=== PATIENT | male | born 1955 | race Caucasian/White ===

== ENCOUNTER → 2017-05-01 | Outpatient (CLI) | payer BC, OTHER ==
--- NOTE | 2017-05-01 12:07 | DIAGNOSTIC IMAGING REPORT ---
L ELBOW 2 VIEWS HISTORY: 61 years-old Male INJURY OF ELBOW LT acute left elbow pain status post fall COMPARISON: None available TECHNIQUE: 3 views of the left elbow FINDINGS: No acute fracture, dislocation, opaque foreign body or large joint effusion. Small enthesophyte is noted about the olecranon at the triceps insertion site. Mild soft tissue swelling is noted posteriorly about the olecranon process. IMPRESSION: Soft tissue swelling without fracture or dislocation. The above report was generated using voice recognition software. It may contain grammatical, syntax or spelling errors. Electronically signed by: Andrey Lafleur M.D. 05/01/2017 12:05 PM Dictated Date/Time: 05/01/2017 12:04 PM
== END ==
LOC: C.RADPV 11:43
PROVIDERS: ATTEND Family Medicine
DX: S59.902A Unspecified injury of left elbow, initial encounter (principal); X58.XXXA Exposure to other specified factors, initial encounter

== ENCOUNTER 2017-08-08 10:48 | Emergency (ER) | payer BC ==
[~2017-08-08] VITALS: Ht 177.8 cm; Wt 96.4 kg
[2017-08-08 11:01] VITALS: Ht 177.8 cm; Wt 96.4 kg
[2017-08-08] MEDS ORDERED: ATOR-24 PO (11:38)
[2017-08-08] MEDS ORDERED: LEVO200T6 PO (11:38)
[2017-08-08] MEDS ORDERED: ACET-1311 PO (11:38)
[2017-08-08] MEDS ORDERED: PRLSR20 PO (11:38)
--- NOTE | 2017-08-08 12:32 | DIAGNOSTIC IMAGING REPORT ---
LEFT LOWER EXTREMITY VENOUS DOPPLER HISTORY: LEFT, EVAL DVT VS PHLEBITIS COMPARISON STUDY: None. FINDINGS: There is normal compressibility, flow, and augmentation within the left lower extremity deep venous system. However there is thrombus seen within the distal greater saphenous vein at the level of the calf as well as a superficial vein within the anterior lower leg. IMPRESSION: No DVT within the left lower extremity. Thrombosed superficial veins within the left lower leg as described above. Electronically signed by: Tylor Carlos M.D. 08/08/2017 12:31 PM Dictated Date/Time: 08/08/2017 12:30 PM
--- NOTE | 2017-08-08 13:06 | DIAGNOSTIC IMAGING REPORT ---
L TIBIA/FIBULA 2 VIEWS ROUTINE CLINICAL HISTORY: LEFT, PAIN AND SWELLING COMPARISON STUDY: None. FINDINGS: No fracture or dislocation within the left tibia or fibula. Diffuse soft tissue swelling within the left lower leg. This is most pronounced within the anterior mid lower leg. There are few small soft tissue calcifications identified. No radiopaque foreign bodies. IMPRESSION: Diffuse soft tissue swelling within the left lower leg. No fractures. Electronically signed by: Tylor Carlos M.D. 08/08/2017 1:04 PM Dictated Date/Time: 08/08/2017 1:03 PM
[2017-08-08] MEDS ORDERED: CEPH500C PO (13:21)
--- NOTE | 2017-08-08 13:24 | EMERGENCY ROOM VISIT NOTE ---
ED Visit Note First contact with patient: 11:11 CHIEF COMPLAINT: Left lower leg pain, swelling and discoloration 2 weeks HISTORY OF PRESENT ILLNESS: Patient is a 61-year-old male who presents emergency department for evaluation of left lower leg pain and swelling 2 weeks. He states that 2 weeks ago he accidentally struck his left madison with a metal table. He had expected pain, swelling in the bruising where he struck his leg, that progressively worsened and he saw his primary care provider about a week out from the injury. He was told that he had a "bone bruise" and was encouraged to rest, ice, elevate and apply compression when he is up and active. He did this, and his symptoms improved. He was using some Tylenol for discomfort. He had some redness and warmth in the anterior madison, which subsided slightly, and he had some tenderness in the calf which was also improving. He had switched over to using some warm compresses. He was wrapping with an Saulo wrap when he was active. This morning however the patient states that he woke, and we tried to get out of bed and put weight on the left leg he developed a sharp type pain below his left knee. He states that he tried to work and stretch the knee and the musculature and his symptoms did improve and they have continued to improve as he has been up and walking on his leg throughout the morning. He did a video conference with a Tele-Doc this morning who advised that he be evaluated due to the increased pain. He does note that he has a prominent varicosity across the anterior left madison which he has had for many years. He denies any knee joint or ankle joint pain but does note that the ankle is swollen this morning. He denies any symptoms into the left thigh. No symptoms in the right leg. REVIEW OF SYSTEMS: Review of systems as per HPI. All other systems reviewed were negative. 10 systems reviewed. PMH: Electronic medical records are reviewed and summarized as above/below. See Problem List. SOCIAL HISTORY: Patient lives at home with his . Retired. Non-smoker. PHYSICAL EXAM: Vital Signs: Reviewed Nurse's notes. CONSTITUTIONAL: Patient is a pleasant, well-appearing 61-year-old male who is awake and alert and in no acute distress. HEART: Regular rate and rhythm. LUNGS: Clear to auscultation. INTEGUMENTARY: Examination of the left lower extremity note erythema and slight increased warmth in the pretibial area. He has trace pitting edema noted in the ankle. He has chronic calluses noted over the anterior knees bilaterally, with some superficial excoriated areas on the left. The patient has a palpable cord on the medial aspect of the knee that wraps across the tibia to the anterior madison. There is some bogginess there, with mild tenderness. There is no overt cellulitic changes appreciated. There is no further palpable cords proximal to the knee, no lymphangitic streaking. Left thigh is nontender. MUSCULOSKELETAL: The left knee joint is nontender, no joint effusion is palpable. He can extend fully and flex to 120. No ligamentous instability is appreciated. Ankle joint is nontender to palpation. Left posterior calf is soft and nontender. Homans sign is negative. EMERGENCY DEPARTMENT COURSE: The patient was seen and evaluated as above. He has some prominent superficial varicosities on the left lower leg normally, and they have been red and swollen since striking the leg about 2 weeks ago. He states that they are actually beginning to improve and they were harder more hard and swollen earlier. Given this, left lower extremity ultrasound was obtained. Findings are consistent with superficial thrombosis of part of the distal greater saphenous and anterior superficial vein of the left lower leg. There is no evidence for deep vein thrombosis. Left tib-fib x-ray was also obtained and was negative. Patient appears to have a superficial thrombophlebitis, likely related to the lower leg contusion injury from a couple of weeks ago. He does have some erythema of the skin, but no overt findings concerning for cellulitis at this time. Supportive care measures were discussed including rest, heat and NSAID therapy. He was however provided a prescription for Keflex that he can fill if his symptoms are not improving in another 2 or 3 days. He was strongly encouraged to elevate the leg and stay off of it as much as possible. He was educated on close follow-up with his primary care provider for reexamination and possible repeat ultrasound this week , and was advised to return to the emergency department sooner if his symptoms are worsening. Patient was comfortable with this and was discharged home. The the amount of superficial phlebitis and given the lack of VTE risk factors, it was not felt that anticoagulation was indicated. Medication reconciliation: I attest that I have personally reviewed the patient' s current medication list. Blood pressure screening: Patient was found to have an elevated blood pressure. He is aware of this and is following with his PCP. LEFT LOWER EXTREMITY VENOUS DOPPLER HISTORY: LEFT, EVAL DVT VS PHLEBITIS COMPARISON STUDY: None. FINDINGS: There is normal compressibility, flow, and augmentation within the left lower extremity deep venous system. However there is thrombus seen within the distal greater saphenous vein at the level of the calf as well as a superficial vein within the anterior lower leg. IMPRESSION: No DVT within the left lower extremity. Thrombosed superficial veins within the left lower leg as described above. ] L TIBIA/FIBULA 2 VIEWS ROUTINE CLINICAL HISTORY: LEFT, PAIN AND SWELLING COMPARISON STUDY: None. FINDINGS: No fracture or dislocation within the left tibia or fibula. Diffuse soft tissue swelling within the left lower leg. This is most pronounced within the anterior mid lower leg. There are few small soft tissue calcifications identified. No radiopaque foreign bodies. IMPRESSION: Diffuse soft tissue swelling within the left lower leg. No fractures. Problem List Medical Problems: (1) Acid reflux Status: Chronic (2) Dyslipidemia Status: Chronic (3) Hypothyroidism Status: Chronic Surgical Problems: (1) History of hernia repair Status: Resolved Current/Historical Medications Scheduled Atorvastatin (Lipitor), 40 MG PO DAILY Cephalexin Monohydrate (Keflex), 500 MG PO TID Levothyroxine Sodium (Levothyroxine Sodium), 200 MCG PO DAILY Omeprazole (Prilosec), 20 MG PO DAILY Scheduled PRN Acetaminophen (Tylenol), 650 MG PO UD PRN for Pain Allergies Coded Allergies: POLLEN (Unverified Allergy, Unknown, , 08/08/17) Codeine (Unverified Adverse Reaction, Unknown, "MAKES THE FLOOR MOVE", ) Vital Signs Date Time Temp Pulse Resp B/P (MAP) Pulse Ox O2 Delivery O2 Flow Rate FiO2 08/08/17 11:01 36.7 97 20 142/86 93 Room Air Departure Information Impression Primary Impression: Superficial thrombophlebitis of left leg Prescriptions Cephalexin Monohydrate (Keflex) 500 Mg Cap 500 MG PO TID, #30 CAP Prov: Evelin Bacon PA 08/08/17 Referrals Elkin Davis M.D. (PCP) Patient Instructions [facility] Additional Instructions Ibuprofen(Motrin, Advil) may be used for fever or pain. Use 800mg 3 times daily with food. Avoid using more than 2400mg in a 24 hour period. Do not use 2400mg per day for more than three consecutive days without physician direction. Prolonged inappropriate use can lead to stomach upset or ulcers. Acetaminophen(Tylenol) may be used for fever or pain. Use 1000mg every six hours as needed. Avoid using more than 3000mg in a 24 hour period. Warm compresses to the affected area for 20 minutes every 1-2 hours. Rest and drink plenty of fluids. Elevate the leg as much as possible. Continue current medications. Return to the ER for severe pain, fevers, worsening swelling, spreading redness , chest pain, shortness of breath, or any worsening of your condition. Follow up with your primary physician next week for a recheck of the current condition. If the redness has not improved in 2-3 days, fill the prescription for Keflex and take as prescribed. If you start the antibiotics, be sure to follow up with your PCP in 2-3 days. Cephalexin(Keflex) 500mg: Take one pill four times daily for 10 days for your skin infection. All antibiotics can cause diarrhea. If this occurs and you feel worse or it does not resolve in 1-2 days follow up with your doctor or return to the Emergency Department as this could be signs of serious underlying problems. Any medication can cause an allergic reaction, stop the pills immediately and return to the ER for rash, hives, breathing difficulties, or swelling.
[2017-08-08 13:43] VITALS: BP 142/86; PULSE 97; TEMP 36.7; O2SAT 93
== END 2017-08-08 13:44 | disposition home or self-care (01) ==
LOC: C.EDB 10:49 → C.EDD 13:44
DX: I80.02 Phlebitis and thrombophlebitis of superficial vessels of left lower extremity (principal); R03.0 Elevated blood-pressure reading, without diagnosis of hypertension; E78.5 Hyperlipidemia, unspecified; E03.9 Hypothyroidism, unspecified; Z79.899 Other long term (current) drug therapy; Z88.5 Allergy status to narcotic agent; Z91.048 Other nonmedicinal substance allergy status

== ENCOUNTER 2023-08-04 06:29 | Observation (INO) ==
--- NOTE | 2023-07-01 13:38 | PAT Medication Instructions ---
Medication Instructions Date of Service July 01, 2023 Home Medications Medication Instructions Recorded clobetasol 0.05 % topical cream 1 applic topical BID 2 weeks #60 03/17/23 grams Scooter #1 ea 04/15/23 levothyroxine 200 mcg tablet 200 mcg PO QAM #90 tabs 04/27/23 losartan 50 mg tablet 50 mg PO HS #90 tabs 04/27/23 methylprednisolone 4 mg tablet 4 mg PO .COMPLEX #21 tabs 06/12/23 Medication List: cetirizine 10 mg tablet (Zyrtec) 10 mg PO HS vitamins-lipotropics tablet 2 tab PO TID atorvastatin 40 mg tablet 40 mg PO HS fluticasone propionate 50 mcg/actuation nasal spray,suspension 2 spray intranasa l QAM omeprazole 20 mg capsule,delayed release 20 mg PO HS mecobalamin (vitamin B12) 1,000 mcg disintegrating tablet,sublingual 1,000 mcg sublingual DAILY clobetasol 0.05 % topical cream 1 applic topical BID 2 weeks levothyroxine 200 mcg tablet 200 mcg PO QAM losartan 50 mg tablet 50 mg PO HS multivitamin 1 tab PO QAM naproxen sodium 220 mg tablet (Aleve) 220 mg PO BID PRN Pain MEDICATION INSTRUCTIONS: Continue as directed fluticasone propionate 50 mcg/actuation nasal spray,suspension 2 spray intranasal QAM clobetasol 0.05 % topical cream 1 applic topical BID 2 weeks (do not apply near surgical area after bathing prior to surgery) ASK your surgeon for instructions naproxen sodium 220 mg tablet (Aleve) 220 mg PO BID PRN Pain STOP taking 2 weeks before surgery vitamins-lipotropics tablet 2 tab PO TID DO NOT take the morning of surgery mecobalamin (vitamin B12) 1,000 mcg disintegrating tablet,sublingual 1,000 mcg sublingual DAILY multivitamin 1 tab PO QAM Take morning of surgery With a small sip of water, OTHERWISE NOTHING TO EAT OR DRINK AFTER MIDNIGHT: levothyroxine 200 mcg tablet 200 mcg PO QAM Take evening before surgery atorvastatin 40 mg tablet 40 mg PO HS losartan 50 mg tablet 50 mg PO HS cetirizine 10 mg tablet (Zyrtec) 10 mg PO HS omeprazole 20 mg capsule,delayed release 20 mg PO HS Other Notes If you have any questions please call us at [phone] or [phone] or [phone] or [phone]
--- NOTE | 2023-07-09 09:10 | Anesthesiology Consultation ---
Date of Service July 09, 2023 Assessment & Plan (1) Encounter for pre-operative examination: - upcoming [place] PCP 07/24/23 office visit. - pulmonology office visit 12/16/22 [place]: "...mildly enlarged 1.1 cm right paratracheal lymph node that appears to be benign based on morphology. There is also some mild subpleural reticulation is noted at the bases bilaterally. This may be due to his prior occupational exposure history, tobacco abuse history and other potential causes. Spirometry is relatively preserved today. We will repeat a full PFT prior to his follow-up visit in 8 months along with an HRCT. His NIOX value is relatively low suggesting against an eosinophilic inflammatory issue in his airways. Lymphadenopathy: As noted above, he has mildly enlarged right paratracheal lymph node that appears to be benign in origin. He denies any overt B symptoms. He notes that his weight has stabilized and that his excessive sweating was mostly related to intense physical activity outside in the summer heat. An etiology for the lymph node such as malignancy and/or lymphoma is unlikely at this point..." - facial hair: patient was advised to shave facial 2 days prior to surgery. He is hesitant with this so I advised trimming armstrong closely, he is aware final determination will be with anesthesiologist esme COLLINS. - Outpatient joint assessment: Patient is currently scheduled for inpatient pathway. If re-evaluated and patient/surgeon requests outpatient pathway, patient is acceptable candidate for outpatient joint program from anesthesia standpoint pending surgeon's office assessment of pt motivation/support/completion of same day joint program preop requirements. Chart Review Chart Review: Pending: Refer to Additional Notes / Consult section and Patient seen in Pre Admission Testing Teaching & Discussion Pre-Anesthesia Teaching/Discussion Notes: Instructed NPO after midnight before surgery, except medications with 15 cc of water. Medication instructions provided according to the PAT guidelines. History Surgery Operation Date: 08/04/23 07:00 Proposed Procedures p Right Total Hip Arthroplasty - Arnoldo Malone MD Height/Weight Height: 5 ft 10 in Weight: 105.1 kg Allergies Allergy/AdvReac Type Severity Reaction Status Date / Time mold Allergy Severe CONGESTION Verified 06/22/23 09:08 pollen extracts Allergy Severe CONGESTION Verified 06/22/23 09:08 amoxicillin Allergy Intermediate Hives Verified 06/30/23 13:06 codeine AdvReac Intermediate "MAKES THE Verified 06/22/23 09:08 FLOOR MOVE" prednisone AdvReac Unknown Shakiness Verified 06/22/23 09:08 rock candy Allergy Mild Hives Uncoded 06/22/23 09:08 Medications Home Medications Medication Instructions Recorded Confirmed Last Taken cetirizine 10 mg tablet (Zyrtec) 10 mg PO HS 05/22/22 07/06/23 09/17/22 vitamins-lipotropics tablet 2 tab PO TID 05/22/22 07/06/23 09/17/22 atorvastatin 40 mg tablet 40 mg PO HS 09/05/22 07/06/23 09/17/22 fluticasone propionate 50 2 spray intranasal QAM 09/05/22 07/06/23 09/17/22 mcg/actuation nasal spray,suspension omeprazole 20 mg capsule,delayed 20 mg PO HS 09/05/22 07/06/23 09/17/22 release mecobalamin (vitamin B12) 1,000 1,000 mcg sublingual DAILY 01/12/23 07/06/23 Unknown mcg disintegrating tablet,sublingual clobetasol 0.05 % topical cream 1 applic topical BID 2 weeks #60 03/17/23 07/06/23 Unknown grams Scooter #1 ea 04/15/23 07/06/23 Unknown levothyroxine 200 mcg tablet 200 mcg PO QAM #90 tabs 04/27/23 07/06/23 Unknown losartan 50 mg tablet 50 mg PO HS #90 tabs 04/27/23 07/06/23 Unknown methylprednisolone 4 mg tablet 4 mg PO .COMPLEX #21 tabs 06/12/23 07/06/23 Unknown multivitamin 1 tab PO QAM 06/30/23 07/06/23 Unknown naproxen sodium 220 mg tablet 220 mg PO BID PRN Pain 06/30/23 07/06/23 Unknown (Aleve) Past Medical History Medical History Abnormal CT scan, chest [place] pul[facility] records 12/16/22: "right paratracheal lymph node that appears to be benign...mild subpleural reticulation at the bases bilaterally..." Acid reflux disease controlled, stable per pt Anxiety Benign hypertension controlled, stable per pt History of tobacco abuse Hyperlipidemia Hypothyroidism Intraductal papillary mucinous neoplasm of pancreas monitored by [facility] Migraine Psoriasis Renal cyst Seasonal allergies Slow to wake up after anesthesia denies needing re-intubation Superficial thrombophlebitis hx-2019 left leg; treated w/ "blood thinners" Tinnitus of both ears chronic Patient denies h/o stroke, seizures, heart attack, heart failure, DM, or blood transfusions. Exercise / Class Metabolic Activity II 4-5 Yardwork/Stairs/Walk up hill (denies chest discomfort or shortness of breath with 1 FOS) Past Family History Family History Father Prostate cancer Dementia Hypertension Heart disease Mother Hypertension Heart disease Allergies Other No family history of adverse response to anesthesia No family history of bleeding disorder Denies family history of Ovarian cancer Myocardial infarction Breast cancer Colorectal cancer Past Surgical History Surgical History H/O inguinal hernia repair x2--both bilateral hernia repair H/O umbilical hernia repair History of colonoscopy History of tooth extraction History of wisdom tooth extraction Past Anesthesia History No Family Hx of Anesthesia Complications and Other (slow to wake after anesthesia; denies needing re-intubation) History of PONV No Hx of PONV and Hx of Motion Sickness Social History Smoking Status: Former smoker Do You Dip or Chew Tobacco: No Smoking End Date: quit 1998 Hx Alcohol Use: Yes ("very rare") alcohol intake frequency: holidays/special occasions only Hx Substance Use: No substance use type: does not use Review of Systems Snoring, denies witnessed apneas. Patient denies chest pain, shortness of breath, dyspnea on exertion, fever, chills, cough, wheezing, or palpitations. Physical Exam Vital Signs Vitals BP 111/67 P 87 TEMP 98.4 SP02 96% on RA RESP 18 Physical Patient resting comfortably in chair in no acute distress, alert and oriented, responding appropriately throughout visit Full cervical extension range of motion without pain TMD 3.5 finger breadths Mallampati Score 3 Dentition: several caps/crowns; denies chipped or loose teeth, implants or bridges Lungs: normal respiratory effort. Good air movement, clear throughout to auscultation, no adventitious breath sounds Cardiac: regular rate and rhythm, no murmurs noted Carotid arteries: negative bruit bilat Lab Results Anesthesia Preop Results Results Anesthesia Widget: WBC 5.97 K/ul (4.8-10.8) 07/09/23 Hgb 15.3 g/dl (14.0-18.0) 07/09/23 Hct 44.9 % (42.0-52.0) 07/09/23 Plt 381 K/uL (130-400) 07/09/23 Na 136 mmol/L (136-145) 07/09/23 K 4.0 mmol/L (3.5-5.1) 07/09/23 Cl 103 mmol/L (98-107) 07/09/23 CO2 28 mmol/L (21-32) 07/09/23 BUN 16 mg/dl (6-23) 07/09/23 Creat 0.77 mg/dl (0.6-1.4) 07/09/23 Glucose Level 128 mg/dl (70-99(Fasting)) H 07/09/23 PT 10.9 Seconds (9.0-12.0) 07/09/23 PTT 27 Seconds (21-31) 07/09/23 INR 1.0 (0.9-1.1) 07/09/23 Blood Type A Positive 07/09/23 Antibody Screen NEGATIVE 07/09/23 Testing Electrocardiogram Date: 07/09/23 NSR, rate 89 bpm Nonspecific T wave abnormality Prolonged QT Pulmonary Function Test Date: 12/16/22 Provider notation: FEV1 of 2.71 L, 81%. Normal spirometry. Other Testing Abdomen pelvis CT 06/29/23 1. Stable 2.7 cm right renal cyst. 2. Stable right-sided nephrolithiasis. No ureteral calculi. No hydronephrosis. 3. Additional findings as described above. Chest CT 12/11/22 1. No acute process within the chest. 2. A few scattered subcentimeter pulmonary nodules with the largest in the right lower lobe measuring 5 mm. Please refer to the chart below for recommended follow-up. 3. A single prominent right paratracheal lymph node. This is likely benign. However, attention at follow-up recommended.
--- NOTE | 2023-07-30 07:42 | History & Physical Report ---
Date of Service July 30, 2023 Assessment & Plan (1) Osteoarthritis of right hip: 67-year-old fairly active gentleman with about a 6-month history of progressive increasing right hip pain discomfort unresponsive to conservative treatment. It is affecting his quality life and he like to have his hip fixed. Plan: When taken to the operating do a right total hip replacement for the risks Mente this procedure explained the patient and include but not limited to DVT, PE, , infection, neurovascular injury, failure to alleviate symptoms incomplete relief of symptoms need for further surgery in the future excetra. Patient understands and desires to proceed. Informed consent was obtained. Will plan on DVT prophylaxis including thigh-high teds, SCDs, aspirin twice a day. He is planned to be discharged home with some home health. History of Present Illness Chief Complaint: . Right hip and groin pain. Primary Care Provider: Heidi Mcconnell MD . The patient is a 67-year-old fairly active gentleman who presents for treatment of his right hip. He has about a 6-month history of gradual progressive increasing right hip pain discomfort. The feels like this all started after bowling tournament. Over the past several months he has been through treatment including physical therapy which seemed to make things worse. He has been on anti-inflammatories which have helped a little bit. Did have a Medrol Dosepak which also provide some temporary relief. Pain is gradually become a bit more debilitating. Describes groin pain thigh pain. Limps a bit more as time goes on. He would like to have his hip fixed. Patient does have a questionable history of a DVT in the past after some type of trauma 4 to 5 years ago. Is got no known clotting disorder. Allergies Allergy/AdvReac Type Severity Reaction Status Date / Time mold Allergy Severe CONGESTION Verified 07/24/23 10:26 pollen extracts Allergy Severe CONGESTION Verified 07/24/23 10:26 amoxicillin Allergy Intermediate Hives Verified 07/24/23 10:26 codeine AdvReac Intermediate "MAKES THE Verified 07/24/23 10:26 FLOOR MOVE" prednisone AdvReac Unknown Shakiness Verified 07/24/23 10:26 rock candy Allergy Mild Hives Uncoded 07/24/23 10:26 Home Medications Medication Instructions Recorded Confirmed Type cetirizine 10 mg tablet (Zyrtec) 10 mg PO HS 05/22/22 07/24/23 History vitamins-lipotropics tablet 2 tab PO TID 05/22/22 07/24/23 History atorvastatin 40 mg tablet 40 mg PO HS 09/05/22 07/24/23 History fluticasone propionate 50 2 spray intranasal QAM 09/05/22 07/24/23 History mcg/actuation nasal spray,suspension omeprazole 20 mg capsule,delayed 20 mg PO HS 09/05/22 07/24/23 History release mecobalamin (vitamin B12) 1,000 1,000 mcg sublingual DAILY 01/12/23 07/24/23 History mcg disintegrating tablet,sublingual clobetasol 0.05 % topical cream 1 applic topical BID 2 weeks #60 03/17/23 07/24/23 Rx grams Scooter #1 ea 04/15/23 07/24/23 Rx levothyroxine 200 mcg tablet 200 mcg PO QAM #90 tabs 04/27/23 07/24/23 Rx multivitamin 1 tab PO QAM 06/30/23 07/24/23 History naproxen sodium 220 mg tablet 220 mg PO BID PRN Pain 06/30/23 07/24/23 History (Aleve) losartan 50 mg tablet 50 mg PO HS #90 tabs 07/13/23 07/24/23 Rx Wheeled Walker #1 ea 07/28/23 Rx acetaminophen 500 mg tablet 1,000 mg (2 x 500 mg) PO TID pain 07/29/23 Rx (Tylenol Extra Strength) 30 days #180 tabs aspirin 81 mg tablet,delayed 81 mg PO BID 45 days #90 tabs 07/29/23 Rx release (Zofia Low Dose Aspirin) ketorolac 10 mg tablet 10 mg PO Q6 pain 5 days #20 tabs 07/29/23 Rx ondansetron 4 mg disintegrating 4 mg PO Q8 PRN nausea #20 tabs 07/29/23 Rx tablet sennosides 8.6 mg tablet (Senokot) 8.6 mg PO BID prevent constipation 07/29/23 Rx 14 days #28 tabs tamsulosin 0.4 mg capsule (Flomax) 0.4 mg PO DAILY #7 caps 07/29/23 Rx tramadol 50 mg tablet 50 - 100 mg (1 - 2 x 50 mg) PO Q6 07/29/23 Rx PRN pain #40 tabs Past Med/Surg History Problem List Nephrolithiasis Osteoarthritis of right hip Intraductal papillary mucinous neoplasm of pancreas monitored by [facility] Abnormal CT of the abdomen Colon cancer screening Encounter for pre-operative examination Acute bronchitis Lump of skin of right upper extremity Lymphadenopathy Encounter for immunization Stiffness of finger joint of right hand Cough Trigger finger of right hand Elevated PSA Elevated hemoglobin A1c Acute sinusitis Bilateral high frequency sensorineural hearing loss Routine health maintenance (Chronic) Anxiety Tinnitus of both ears (Acute) chronic Renal cyst Psoriasis Osteoarthritis History of tobacco abuse Abnormal CT scan, chest [facility] 12/16/22: "right paratracheal lymph node that appears to be benign...mild subpleural reticulation at the bases bilaterally..." Acid reflux disease (Chronic) controlled, stable per pt Benign hypertension (Chronic) controlled, stable per pt Hyperlipidemia (Chronic) Hypothyroidism (Chronic) Seasonal allergies Medical History Slow to wake up after anesthesia denies needing re-intubation Migraine Superficial thrombophlebitis [id number] left leg; treated w/ "blood thinners" Surgical History History of colonoscopy History of wisdom tooth extraction History of tooth extraction H/O umbilical hernia repair H/O inguinal hernia repair x2--both bilateral hernia repair Family History Father Prostate cancer Dementia Hypertension Heart disease Mother Hypertension Heart disease Allergies Other No family history of adverse response to anesthesia No family history of bleeding disorder Denies family history of Ovarian cancer Myocardial infarction Breast cancer Colorectal cancer Social History Smoking Status: Former smoker Tobacco Type: Cigarettes Age Started Using Tobacco: 15; Age Quit Using Tobacco: 43; Smoking End Date: quit 1998; Second Hand Exposure: No; Do You Dip or Chew Tobacco: No; Tobacco Cessation Education Requested by Patient: No Hx Alcohol Use: Yes ("very rare") Hx Substance Use: No Preferred Language: Ukrainian Communication Ability: Effective Hearing Ability: Normal 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 Physical Exam . Physical examination reveals a pleasant middle-age male. Looks in pretty good health. Examination of the right hip reveal patient walks with a slightly antalgic gait. He is about half a centimeter shorter on the right side compared to the left. Is got stiffness with hip motion. He can internally rotate to about neutral. This does recreate his pain. Negative straight leg raise. No knee effusion. He is neurologically intact. Constitutional WD/WN, vitals as above Neck trachea midline, no thyromegaly Respiratory normal respiratory effort, lungs clear to auscultation Cardiovascular RRR, no murmur, no edema Gastrointestinal (Abdomen) normal bowel sounds, soft, nontender, no hepatosplenomegaly Results & Data Results & Data Laboratory Results . Diagnostic Findings . X-rays of the right hip were reviewed. Shows advanced hip arthritis but is got complete loss of his superior joint space. He is got some cystic changes in the femoral head and acetabulum. A little bit of cam type impingement. Fairly minimal osteophyte formation PG Care Time/CCT Total # of Minutes Spent Total Time Spent with Patient: Total time spent is greater than 50% in coordination of care (as documented) at patient's floor/unit and/or counseling patient: Coding Level of Care Code None Diagnoses Primary osteoarthritis of right hip M16.11 Osteoarthritis type: primary (1) Osteoarthritis of right hip Osteoarthritis type: primary Qualified Code(s): M16.11 - Unilateral primary osteoarthritis, right hip
[~2023-08-04 06:29] MED LIST: BUPIVACAINE 0.5 % 5 MG/1 ML PF 10ML VIAL ONE
--- NOTE | 2023-08-04 06:47 | History & Physical Bridge Note ---
Date of Service August 04, 2023 History & Physical Bridge Note I have examined the patient, reviewed the History & Physical and in the interval since the performance of the History & Physical I have noted the following changes of clinical significance: no changes noted
[2023-08-04] MEDS ORDERED: PROPOFOL IV EMULSION 10 MG/ML 20 ML VIAL IV ONE ×3 (07:19→09:04)
[2023-08-04] MEDS ORDERED: DEXAMETHASONE SOD INJ 4 MG/ML VIAL ONE (07:19)
[2023-08-04] MEDS ORDERED: MIDAZOLAM HCL 1 MG/ML 2ML VIAL ONE ×2 (07:19→09:07)
[2023-08-04] MEDS ORDERED: LIDOCAINE 2% 2 ML VIAL/AMP(20MG/ML) INFIL ONE (07:19)
[2023-08-04] MEDS ORDERED: ONDANSETRON INJ 2 MG/ML 2 ML VIAL ONE (07:19)
[2023-08-04] MEDS ORDERED: fentaNYL citrate PF 100 MCG/2 ML VIAL ONE (07:19)
[2023-08-04] MEDS: LR 500ML BOLUS, THEN 15ML/HR IV SCH (07:35)
[2023-08-04] MEDS: LR 60ML/HR IV SCH (07:35)
[2023-08-04] MEDS: ACETAMINOPHEN 500 MG TAB PO SCH ×3 (07:36→13:22)
[2023-08-04] MEDS: CeleBREX 200 MG CAP PO SCH (07:37)
[2023-08-04] MEDS: dexAMETHasone**PF** 10 MG/ML VIAL IV SCH (07:37)
[2023-08-04] MEDS: FAMOTIDINE 20 MG TAB PO SCH (07:37)
[2023-08-04] MEDS: Scopolamine 1 MG TDSY TD SCH (07:38)
[2023-08-04] MEDS: METOCLOPRAMIDE HCL 10 MG TABLET PO SCH (07:38)
[2023-08-04] MEDS ORDERED: ePHEDrine sulfate 50 MG/ML AMP IV PRN (08:34)
[2023-08-04] MEDS ORDERED: ONDANSETRON INJ 2 MG/ML 2 ML VIAL IV PRN ×2 (08:34→11:37)
[2023-08-04] MEDS ORDERED: ATROPINE SULFATE 0.1 MG/ML 10ML SYR IV PRN (08:34)
[2023-08-04] MEDS ORDERED: PROMETHAZINE HCL 6.25 MG in SODIUM CHLORIDE 0.9% 50 ML IV PRN (08:34)
[2023-08-04] MEDS ORDERED: fentaNYL citrate PF 100 MCG/2 ML VIAL IV PRN (08:34)
[2023-08-04] MEDS: TRANEXAMIC ACID 1,000 MG **IV Pre-op IV SCH (08:38)
[2023-08-04] MEDS ORDERED: Nursing to Pharmacy Communication SCH (08:45)
[2023-08-04] MEDS: ceFAZolin 2000MG 2,000 MG/15 ML SYR IV SCH ×2 (08:50→16:29)
[2023-08-04] MEDS ORDERED: ePHEDrine sulfate 50 MG/ML AMP ONE ×2 (09:13→09:37)
[2023-08-04] MEDS ORDERED: PHENYLEPHRINE 100MCG/ML 10ML SYR IV ONE (09:13)
[2023-08-04] MEDS ORDERED: PHENYLEPHRINE HCL 10 MG/ML VIAL ONE (09:18)
[2023-08-04] MEDS: BUPIVACAINE/EPINEPHRINE 0.5% MPF 1:200,000 30 ML VIAL ONE (09:35)
--- NOTE | 2023-08-04 10:33 | Operative Report ---
PG Post Operative Report Pre & Post Diagnosis Operation Date: 08/04/23 08:50 Pre-Op Diagnosis: Right Hip Degenerative Joint Disease Post-Op Diagnosis: Right Hip Degenerative Joint Disease I identified the patient and participated in the time-out.: Yes Procedure Operation Date: 08/04/23 08:50 Actual Procedures p Right Total Hip Arthroplasty(Right) - Arnoldo Malone MD Surgeon Arnoldo Malone MD Receiving Worker Syed Cassidy PA-C Estimated Blood Loss 100 Findings Consistent with Post-Op Diagnosis Operative findings revealed advanced right hip arthritis. He did have grade 4 [id number] disease the femoral head and acetabulum. Not much in way osteophyte formation. Moderate-sized joint effusion. Specimens Right femoral head sent for pathology. Anesthesia Type Spinal MAC Complications none Disposition Accompanied Patient To Recovery: No Indications Patient is 67-year-old very active gentleman who is about a 6-month history of a significantly increasing right right hip pain discomfort that gradually got worse over time. Failed conservative measures. X-rays showed right advanced hip arthritis. He elected proceed with total hip arthroplasty. Description of Procedure Operative implants consist of: 1. Biomet G7 size 56 mm acetabular shell. 2. 6.5 cancellous acetabular screws 1 of 35 mm in length and 125 mm length. 3. Badin hole mail clerk. 4. Highly cross-linked polyethylene liner with a 56 mm outer diameter and 36 mm inner diameter. 5. DePuy Karaya size 11 KLA femoral stem. 6. +5/36 mm ceramic articular ball. The patient was taken to the operating, identified, placed on the operating table in the supine position but all contractors were appropriately padded. IV antibiotics tried by anesthesia team. A spinal anesthetic had been provided in the holding area. The patient was then placed in the left lateral decubitus position. An axillary roll was placed. Distal Birkett position was used for positioning. The right hip and leg were then prepped and draped in usual sterile fashion. A posterolateral approach to the right hip was then performed to a curvilinear incision centered over the greater trochanter. Sharp dissection carried through subcutaneous tissue down to level the IT band gluteal fascia. The IT band gluteal fascia was sized longitudinally in line with skin incision. The underlying greater bursa was excised. The piriformis and external rotators along with the posterior hip joint capsule were then released from the posterior aspect the hip as a single layer. Hip was internally rotated and dislocated. Femoral neck osteotomy cut was made with Final Cut about 15 mm above the lesser trochanter. Femoral head was removed and sent for pathology. The femur was retracted anteriorly. Attention drawn the acetabulum. The acetabular labrum was excised. The pulmonary fat was excised. Sequential reaming the acetabular was then performed beginning with a size 47 progressing up to 55. I reamed a little bit with a 56 reamer. A 56 mm Biomet G7 acetabular shell was then placed in about 40 degrees lateral opening and 20 degrees of anteversion. It was fixed with two 6.5 screws. A trial liner was placed. Attention drawn the femur. The proximal femur was entered with a [employer] cutter followed by canal finder. I then broached beginning size 8 and progressed up to 11. Get excellent fit 11. I then trialed the hip and the +5 articular ball provided full stability in full extension and external rotation and flexion to 90 degrees internal Tatian over 50 degrees. Leg lengths seemed appropriate and soft tissue tension seemed appropriate. I like to place these implants. All trial implants were removed. An apex hole mail clerk was placed. Highly cross-linked polyethylene liner was placed. A size 11 KLA femoral stem was impacted in position. +5/36 mm ceramic articular ball was placed. Hip was located and once again found to be stable. Attention drawn toward closing. The wound was irrigated coconuts pulsatile lavage solution. I did inject locally with 60 cc of half percent Marcaine with epinephrine. The posterior capsule and external rotators then repaired through drill holes in the posterior trochanter with #2 Tycron suture. The IT band gluteal fascia was then closed in 1 PDS suture running fashion for the subcutaneous tissues then closed with 2 layers with a deep layer #1 Vicryl suture and subcutaneous tissue with 2-0 Dexon suture in a buried interrupted fashion. Skin was closed skin jayce. Leg was then cleaned and dried and a sterile dressing with Xeroform, 4 fours, sterile ABD pad and foam tape was applied. Patient then transferred to the recovery room in stable condition. Patient tolerated procedure well and there were no complications. Syed Casisdy, my physician assistant drafter, was present for the entire procedure. His assistance was essential and required for appropriate patient positioning, prepping and draping, surgical exposure, performing the technical details of the operation, placement the implants, closure of the wound, and placement of the sterile bandage. I attest to the content of the Intraoperative Record and any orders documented therein. Any exceptions are noted below.
[2023-08-04] MEDS ORDERED: HYDROmorphone INJ 0.5 MG/0.5 ML SYR IV PRN (11:37)
[2023-08-04] MEDS ORDERED: METOCLOPRAMIDE HCL INJ 5 MG/ML 2 ML VIAL IV PRN (11:37)
[2023-08-04] MEDS ORDERED: NALOXONE HCL 0.4 MG/1 ML VIAL/CARP IV PRN (11:37)
[2023-08-04] MEDS ORDERED: bisacodyL 10 MG SUPP PR PRN (11:37)
[2023-08-04] MEDS ORDERED: ALUMINUM/MAGNESIUM SUSP 30 ML UDC PO PRN (11:37)
[2023-08-04] MEDS ORDERED: MAGNESIUM HYDROXIDE SUSP 30 ML UDC PO PRN (11:37)
[2023-08-04] MEDS: SODIUM CHLORIDE 0.9% 1,000 ML IV SCH (12:12)
--- NOTE | 2023-08-04 12:19 | XRay Report ---
AP PELVIS, CROSSTABLE LATERAL RIGHT HIP History: Right total hip arthroplasty. Degenerative arthritis. Postop. FINDINGS: The patient is status post a right total hip arthroplasty. The hardware is intact. No fract ure or dislocation. Skin jayce are in place. IMPRESSION: Right total hip arthroplasty. No evidence for hardware complication ACT 112: Negative or not required by law. Electronically signed by: Tylor Carlos M.D. 08/04/2023 12:18 PM
[2023-08-04] MEDS: KETOROLAC TROMETHAMINE 15 MG/ML VIAL IV SCH (12:44)
[2023-08-04] MEDS ORDERED: VITAMINS LIPOTROPICS PO SCH (14:00)
--- NOTE | 2023-08-04 15:01 | Anesthesiology Progress Note ---
Date of Service August 04, 2023 Anesthesia Post Procedure Vital Signs Vital Signs: Temp Pulse Pulse Resp BP Pulse Ox Pulse Ox 08/04/23 14:46 36.8 C 110 H 16 126/63 94 08/04/23 13:45 36.6 C 114 H 16 104/62 94 08/04/23 12:42 36.5 C 99 H 16 108/65 94 08/04/23 12:10 36.4 C L 98 H 16 109/66 93 08/04/23 12:00 08/04/23 11:37 36.5 C 98 H 16 108/66 94 08/04/23 11:20 93 08/04/23 11:20 94 H 16 106/64 94 08/04/23 11:10 93 H 12 102/60 95 08/04/23 11:00 37.0 C 89 14 107/62 96 08/04/23 10:50 94 H 18 99/64 L 94 08/04/23 10:40 96 H 12 105/57 L 96 08/04/23 10:30 91 H 16 104/59 L 98 08/04/23 10:20 36.0 C L 100 H 12 99/62 L 96 08/04/23 07:13 37.0 C 96 H 20 125/83 93 O2 Del Method O2 Del Method O2 Flow Rate O2 Flow Rate 08/04/23 14:46 Nasal Cannula 2 08/04/23 13:45 Nasal Cannula 2 08/04/23 12:42 Nasal Cannula 2 08/04/23 12:10 Nasal Cannula 2 08/04/23 12:00 Nasal Cannula 2 08/04/23 11:37 Nasal Cannula 2 08/04/23 11:20 Nasal Cannula 2 08/04/23 11:20 Nasal Cannula 2 08/04/23 11:10 Nasal Cannula 2 08/04/23 11:00 Nasal Cannula 2 08/04/23 10:50 Oxymask 4 08/04/23 10:40 Oxymask 4 08/04/23 10:30 Oxymask 6 08/04/23 10:20 Oxymask 6 08/04/23 07:13 Room Air Transfer of Care Handoff Completed per policy Notes Mental Status: alert / awake / arousable and participated in evaluation Patient Amnestic to Procedure: Yes Nausea / Vomiting: adequately controlled Pain: adequately controlled Airway Patency, RR, SpO2: stable & adequate BP & HR: stable & adequate Hydration State: stable & adequate Neuraxial Anesthesia: was administered and sensory block is resolving Anesthetic Complications: no major complications apparent and Pt Satisfied with anesthetic care
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
[2023-08-04] MEDS: traMADol HCL 50 MG TABLET PO PRN (15:44)
[2023-08-04] MEDS: Scopolamine CHECK PATCH PLACEMENT SCH (15:45)
[2023-08-04] MEDS: TRANEXAMIC ACID / 0.7% NACL 1,000 MG/100 ML BAG IV SCH (16:22)
[2023-08-04] MEDS: ASCORBIC ACID 500 MG TAB PO SCH (16:22)
--- NOTE | 2023-08-04 16:34 | Electrocardiogram Report ---
Test Reason : Blood Pressure : / mmHG Vent. Rate : 111 BPM Atrial Rate : 111 BPM P-R Int : 160 ms QRS Dur : 100 ms QT Int : 352 ms P-R-T Axes : 045 -13 074 degrees QTc Int : 478 ms Sinus tachycardia Nonspecific T wave abnormality Abnormal ECG When compared with ECG of 09-JUL-2023 10:00, No significant change was found Confirmed by Yassine Pickering ([id number]) on 08/04/2023 4:34:02 PM Referred By: Arnoldo Malone Confirmed By:Yassine Pickering
[2023-08-04] MEDS: SENNA 8.6 MG TAB PO SCH ×2 (20:53→20:54)
[2023-08-04] MEDS: PANTOprazole 40 MG TAB PO SCH (20:54)
[2023-08-04] MEDS: ASPIRIN 81 MG ECTAB PO SCH (20:54)
[2023-08-04] MEDS: CETIRIZINE HCL 10 MG TABLET PO SCH (20:54)
[2023-08-04] MEDS: DOCUSATE SODIUM 100 MG CAP PO SCH (20:55)
[2023-08-04] MEDS: ATORVASTATIN 40 MG TAB PO SCH (20:55)
[2023-08-04] MEDS: CLOBETASOL PROPIONATE 0.05% CREAM 15 GM TUBE TOP SCH (23:55)
[2023-08-05 06:49] LABS: Basophils # (auto) 0.03 K/uL (0.00-0.20); Basophils % (auto) 0.2 %; Hematocrit (blood only) 38.1 % (42.0-52.0); Hemoglobin 13.2 g/dl (14.0-18.0); Immature Granulocytes # (auto) 0.16 K/uL (0.01-0.20); Immature Granulocytes % (auto) 1.1 %; Lymphocytes # (auto) 0.89 K/uL (1.20-3.40); Lymphocytes % (auto) 5.9 %; Mean Corpuscular Hemoglobin 30.5 pg (25.0-34.0); Mean Corpuscular Hgb Conc 34.6 g/dL (32.0-36.0); Monocytes # (auto) 1.01 K/uL (0.11-0.59); Monocytes % (auto) 6.7 %; Neutrophils # (auto) 12.89 K/uL (1.40-6.50); Neutrophils % (auto) 86.1 %; Platelet Count 309 K/uL (130-400); RDW Coefficient of Variation 12.2 % (11.5-14.5); RDW Standard Deviation 39.2 fL (36.4-46.3); Red Blood Count 4.33 M/uL (4.70-6.10); White Blood Count 14.98 K/ul (4.8-10.8)
[2023-08-05 07:20] LABS: BUN Creatinine Ratio 17.4 (10-20); Calcium 8.8 mg/dl (8.6-10.3); Creatinine Clr Calc Pharmacy 94.7 ml/min; Est GFR (African American) 99.4 ml/min; Est GFR (Non-African American) 85.8 ml/min; Potassium 4.6 mmol/L (3.5-5.1)
[2023-08-05] MEDS: dexAMETHasone 10 MG in SYRINGE 0 ML IV SCH (08:24)
[2023-08-05] MEDS: FLUTICASONE PROPIONATE NA SPR 16 GM BTL NAE SCH (08:29)
[2023-08-05] MEDS: LEVOTHYROXINE SODIUM 200 MCG TABLET PO SCH (08:30)
[2023-08-05] MEDS: MULTIVITAMIN TAB PO SCH ×2 (08:30→08:31)
[2023-08-05] MEDS: TAMSULOSIN HCL 0.4 MG CAP PO SCH (08:31)
[2023-08-05] MEDS ORDERED: NON-FORMULARY MEDICATION (Mecobalamin (Vitamin B12) 1,000 mcg tablet,disintegrating) SL SCH (09:00)
[2023-08-05] MEDS ORDERED: LOSARTAN POTASSIUM 50 MG TAB PO SCH (09:00)
--- NOTE | 2023-08-05 10:43 | Hospitalist Progress Note ---
Date of Service August 05, 2023 Assessment & Plan (1) Tachycardia: Plan: postoperative tachycardia sustaining 100s to 110 - Patient asymptomatic - EKG: Sinus tachycardia, QTc 478 - dehydration versus anxiety versus reaction to steroids - recived 1L of IVF and reports improved PO hydration - TSH WNL 07/2023 Now resolved Patient with documented oxygen needs - but maintined 92-95% on room air during duration of my encounter. (2) Osteoarthritis of right hip: Plan: status post right total hip arthroplasty with Dr. Malone on 08/04/2023 - pain control/ dvt proh per primary team - EBL 100 - femoral head pathology pending - Hgb 13.2 was 15.3 prior to surgery - suspect acute blood loss vs dilutioanl (3) Benign hypertension: Plan: Hold losartan POD#1 - can resume at discharge Chonic stable problems: HLD - continue atrovastatin GERD - continue omeprazole BPH - continue flomax Plan Dispo: stable for discharge Thank you for allowing us to participate in the care of this patient, please reach out with any questions or concerns Admission and Anticipated Discharge Date Admission Date: August 04, 2023 Supervising Physician Co-Signing Physician Notes Attending Attestation - Chart reviewed, care plan d/w KALEE Mario. I agree w/ the machuca components of her documentation. Antonio Christensen MD Subjective Patient sitting up in the chair - feeling well, minimal pain with movement Passing gas since surgery was documented on 3L of oxygen but on room air during my interview at 93-94% Review of Systems Review of Systems: All systems reviewed & are unremarkable except as noted in Subjective Physical Exam Physical Exam: General: NAD, VS as above HEENT: MMM Resp: normal respiratory effort, lungs clear to auscultation CV: RRR, no murmur, Results & Data Results & Data Vital Signs (Past 12 Hours) Vital Signs Temp Pulse Pulse Resp BP Pulse Ox O2 Del Method 08/05/23 09:18 36.3 C L 79 18 130/81 92 Nasal Cannula 08/05/23 03:01 36.5 C 82 16 125/75 96 Nasal Cannula 08/04/23 23:08 36.6 C 87 18 145/79 H 96 Nasal Cannula O2 Flow Rate 08/05/23 09:18 3 08/05/23 03:01 3.0 08/04/23 23:08 2.0 Laboratory Results CBC and chemistry reviewed PG Care Time/CCT Total # of Minutes Spent Total Time Spent with Patient: Total time spent is greater than 50% in coordination of care (as documented) at patient's floor/unit and/or counseling patient: Coding Level of Care Code 06451 SUB INP/OBS CARE 2/35MIN Diagnoses Tachycardia R00.0 Primary osteoarthritis of right hip M16.11 Osteoarthritis type: primary Benign hypertension I10 (2) Osteoarthritis of right hip Osteoarthritis type: primary Qualified Code(s): M16.11 - Unilateral primary osteoarthritis, right hip
--- NOTE | 2023-08-05 11:03 | Surgery Progress Note ---
Date of Service August 05, 2023 Assessment & Plan (1) Status post right hip replacement: Plan: 67-year-old gentleman postop day 1 from right hip replacement doing pretty well. Pains controlled. Medically stable. Hips located. He is neurologically intact. Plan: 1. DVT prophylaxis including thigh-high teds, SCDs, aspirin twice a day. 2. PT/OT. Weight-bear as tolerated. Right total hip protocol. 3. Pain control doing well with current pain regimen. 4. Disposition plan to discharge home with some home health today after therapy Admission and Anticipated Discharge Date Admission Date: August 04, 2023 Subjective 67-year-old gentleman postop from a total hip replacement. He is doing quite well. They are really not too painful. No chest pain or shortness of breath. Not feeling dizzy or lightheaded. Hoping to go home today. Physical Exam Physical Exam: Physical examination is a pleasant middle-age male. He is sitting up in his bedside looks pretty comfortable. Examination of the hip reveals the dressing be clean dry and intact. Thigh is soft and supple. Leg lengths are equal. He can dorsiflex and plantarflex his foot appropriately. He is neurologically intact. Respiratory: normal respiratory effort, lungs clear to auscultation Cardiovascular: RRR, no murmur, no edema Gastrointestinal (Abdomen): normal bowel sounds, soft, nontender, no hepatosplenomegaly Results & Data Vital Signs (Past 12 Hours) Vital Signs Temp Pulse Pulse Resp BP Pulse Ox O2 Del Method 08/05/23 09:18 36.3 C L 79 18 130/81 92 Nasal Cannula 08/05/23 03:01 36.5 C 82 16 125/75 96 Nasal Cannula 08/04/23 23:08 36.6 C 87 18 145/79 H 96 Nasal Cannula O2 Flow Rate 08/05/23 09:18 3 08/05/23 03:01 3.0 08/04/23 23:08 2.0 Laboratory Results Hemoglobin is 13.2. Hematocrit is 38.1. Electrolytes are stable. PG Care Time/CCT Total # of Minutes Spent Total Time Spent with Patient: Total time spent is greater than 50% in coordination of care (as documented) at patient's floor/unit and/or counseling patient: Coding Level of Care Code 34020 Post Operative Follow-Up Diagnoses Status post right hip replacement Z96.641
--- NOTE | 2023-08-11 06:36 | Discharge Summary ---
Date of Service August 11, 2023 Discharge Data Consultations 08/04/23 14:44 Consult Hospitalist Routine Procedures Performed Operation Date: 08/04/23 08:50 Actual Procedures p Right Total Hip Arthroplasty(Right) - Arnoldo Malone MD Hospital Course (1) Status post right hip replacement: This is a 67 year old patient admitted on 08/04/23 and underwent total hip arthroplasty. He tolerated the procedure well and there were no complications. Transferred to the PACU post op and later to the orthopedic floor for further care. He was given ancef for antibiotic prophylaxis. He was also given RUCHI stockings, SCDs, and aspirin for DVT prophylaxis. Hemoglobin, hematocrit, and vital signs were monitored during his hospital stay and remained stable. He did have some post op tachycardia and the hospitalist service was consulted. Did not require any blood transfusions. There were no complications during his hospital stay. By post op day #1 the patient was tolerating a regular diet, pain was reasonably controlled with oral pain medicine, and he was participating in physical therapy. On post op day #1 the patient was discharged home and set up with home health care. He was given printed discharge instructions including prescriptions for extra strength tylenol, aspirin, ketorolac, zofran, senokot, tramadol, and flomax. Continue hip precautions. Continue physical therapy, weight bearing as tolerated. Continue RUCHI stockings. Follow up approximately 2 weeks post op or sooner if there are problems or concerns. Coding Level of Care Code None Diagnoses Status post right hip replacement Z96.641
== END 2023-08-05 11:42 | disposition home health service (06) ==
LOC: ASU 06:29 → 3E 06:29